=== PATIENT | female | born 1970 | race Hispanic/Latino ===

== ENCOUNTER 2018-04-20 12:43 | Inpatient (IN) | payer MEDICAID ==
[2018-04-20] MEDS ORDERED: Sodium Chloride 0.9% 1,000 ML IV ONE (13:16)
[2018-04-20] MEDS ORDERED: Sodium Chloride 0.9% 1,000 ML ONE (13:32)
[2018-04-20 14:02] LABS: BASO % 0.6 % (0.0-2.0); EOS % 0.7 % (0.0-4.0); HEMOGLOBIN 12.6 g/dL (11.0-16.0); LYMPH # 1.1 K/uL (1.0-4.3); MEAN CELL VOLUME 102.9 fL (81.0-99.0); MEAN CORPUSCULAR HEMOGLOBIN 35.7 pg (27.0-31.0); MEAN CORPUSCULAR HGB CONC 34.7 g/dL (33.0-37.0); MEAN PLATELET VOLUME 8.6 fL (7.2-11.7); MONO # 0.4 K/uL (0.0-0.8); MONO % 9.9 % (0.0-10.0); NEUT # 2.1 K/uL (1.8-7.0); NEUT % 57.8 % (50.0-75.0); NRBC % 0.4 % (0.0-2.0); RBC 3.52 Mil/uL (3.80-5.20); RED CELL DISTRIBUTION WIDTH 20.8 % (11.5-14.5); WHITE BLOOD COUNT 3.7 K/uL (4.8-10.8)
[2018-04-20 14:07] LABS: HCG,QUALITATIVE URINE NEGATIVE (NEGATIVE); SQUAMOUS EPITHIAL 2 /hpf (0-5); URINE BILIRUBIN 2+ (NEGATIVE); URINE BLOOD 1+ (NEGATIVE); URINE CLARITY Hazy (Clear); URINE COLOR Amber (YELLOW); URINE GLUCOSE (UA) NORMAL (Normal); URINE LEUKOCYTE ESTERASE NEG Leu/uL (Negative); URINE PROTEIN 2+ mg/dL (NEGATIVE)
[2018-04-20 14:15] LABS: ALB/GLOB RATIO 1.6 (1.0-2.1); ALBUMIN 4.4 g/dL (3.5-5.0); ALT/SGPT 162 U/L (9-52); AST/SGOT 655 U/L (14-36); BLOOD UREA NITROGEN 10 mg/dL (7-17); CALCIUM 8.9 mg/dl (8.6-10.4); GFR AFRICAN-AMERICAN > 60; GFR NON-AFRICAN AMERICAN > 60
[2018-04-20] MEDS ORDERED: Magnesium Sulfate 1 gm in D5W 1 GM/100 ML BAG IVPB ONE ×2 (14:42→14:51)
[2018-04-20] MEDS ORDERED: Potassium Chloride 20 mEq ER Tab PO STA (14:43)
[2018-04-20 14:49] LABS: BARBITURATES, UR NEGATIVE (NEGATIVE); OPIATES, UR NEGATIVE (NEGATIVE); PHENCYCLIDINE, UR NEGATIVE (NEGATIVE)
[2018-04-20] MEDS ORDERED: Potassium Chloride 20 mEq ER Tab PO ONE (14:51)
[2018-04-20 15:13] LABS: BENZODIAZEPINES, UR POSITIVE (NEGATIVE)
--- NOTE | 2018-04-20 15:28 | C.PDOC ---
History Of Present Illness Pt is here requesting detox from alcohol. Time Seen by Provider: 04/20/18 13:08 Chief Complaint (Nursing): Substance Abuse History Per: Patient Onset/Duration Of Symptoms: Days Current Symptoms Are (Timing): Still Present Modifying Factor(s): Alcohol Severity: Moderate Associated Symptoms: denies: Suicidal Thoughts, Suicidal Plan Additional History Per: Prior Records Past Medical History Reviewed: Historical Data, Nursing Documentation, Vital Signs Vital Signs: Last Vital Signs Temp 99 F 04/20/18 12:49 Pulse 132 H 04/20/18 12:49 Resp 20 04/20/18 12:49 BP 125/91 H 04/20/18 12:49 Pulse Ox 98 04/20/18 15:29 - Medical History PMH: Depression, Seizures (ETOH) Other PMH: Alcohol abuse Other Surgeries: Hysterectomy Family History: States: Unknown Family Hx - Social History Hx Tobacco Use: Yes Hx Alcohol Use: Yes Hx Substance Use: Yes - Immunization History Hx Tetanus Toxoid Vaccination: No Hx Influenza Vaccination: No Hx Pneumococcal Vaccination: No Review Of Systems Except As Marked, All Systems Reviewed And Found Negative. Constitutional: Negative for: Fever Cardiovascular: Negative for: Chest Pain Respiratory: Negative for: Shortness of Breath Gastrointestinal: Positive for: Nausea, Vomiting. Negative for: Abdominal Pain , Melena, Hematochezia, Hematemesis Musculoskeletal: Negative for: Neck Pain Skin: Positive for: Bruising Neurological: Negative for: Weakness, Numbness Physical Exam - Physical Exam Appears: Non-toxic, No Acute Distress Skin: Normal Color, Warm, Dry Head: Atraumatic, Normacephalic Eye(s): bilateral: PERRL, EOMI Lips: Other (Ecchymosis on lower lip) Teeth: No Avulsed Neck: Normal ROM, No Midline Cervical Tenderness, No Step Off Deformity, Supple Cardiovascular: Rhythm Regular (mild tachycardia) Respiratory: Normal Breath Sounds, No Accessory Muscle Use Gastrointestinal/Abdominal: Soft, No Tenderness Extremity: Normal ROM, No Deformity Neurological/Psych: Oriented x3, Normal Speech, Normal Cognition, Normal Motor, Normal Sensation, Other (Mildly tremulous) ED Course And Treatment - Laboratory Results Result Diagrams: 04/20/18 13:55 04/20/18 13:55 Interpretation Of Abnormal: Hypokalemia ECG: Interpreted By Me, Viewed By Me ECG Rhythm: Sinus Tachycardia, Nonspecific Changes Rate From EC O2 Sat by Pulse Oximetry: 98 Pulse Ox Interpretation: Normal Progress Note: Pt is medically stable for detox admission. Progress - Interventions Interventions:: Observation, Intravenous fluid - Medications Administered Oral: Other (KCl) Intravenous: H-2 [place], Other (Mg) - Data Reviewed Data Reviewed: Lab, Diagnostic imaging, EKG, Old records - Patient Status Patient status: Partially improved Disposition Counseled Patient/Family Regarding: Studies Performed, Diagnosis - Disposition Disposition: HOSPITALIZED Disposition Time: 15:37 Condition: STABLE - Clinical Impression Clinical Impression: Alcohol use disorder Decision To Admit - Pt Status Changed To: Hospital Disposition Of: Inpatient - Admit Certification Admit to Inpatient:: After my assessment, the patient will require hospitalization for at least two midnights. This is because of the severity of symptoms shown, intensity of services needed, and/or the medical risk in this patient being treated as an outpatient. - InPatient: Physician Admission Certification: I certify that this patient requires 2 or more midnights of care for the following reason:: Detox. - . Bed Request Type: Detox Admitting Physician: Jean Connors Patient Diagnosis: Alcohol use disorder
[2018-04-20] MEDS: Multiple Vitamins Tab PO SCH (17:20)
--- NOTE | 2018-04-20 22:51 | PCM.BM ---
<CarlosSummer - Last Filed: 04/20/18 22:50> Treatment Plan Problems - Problems identified on initial assessmt Potential for alcohol withdrawal Date Initiated: 04/20/18 Time Initiated: 22:50 Assessment reference: NA Status: Active Treatment assets and liabiliti Patient Assests: cooperative, negotiates basic needs, cognitively intact Patient Liabilities: substance abuse, medical problems, other (h/o multiple falls) - Milieu Protocol Maintain good personal hygiene: daily Encourage regular showers, daily Remind patient to perform daily oral care, daily Assist patient to perform ADL's Conduct patient checks and document Observation sheet: Q15 minutes Maintain personal safety: every shift Educate patient to report safety concerns to staff, every shift Monitor environment for contraband/sharps Medication safety: Monitor for expected outcome, potential side effects: every shift, Assess barriers to learning: every shift, Assess readiness for medication education: every shift <Jean Connors - Last Filed: 04/21/18 20:52> - Diagnosis (1) Alcohol use disorder Status: Acute Interventions: 04/21/18 20:52 * Assess 7x/week regarding severity of withdrawal * Educate regarding risks, benefits, side effects and alternatives of medications * Use Motivational Interviewing for abstinence * Use CBT for relapse prevention * Medication management for withdrawal symptoms * Encourage medication assisted treatment *
[2018-04-21 09:32] LABS: ALB/GLOB RATIO 1.4 (1.0-2.1); ALBUMIN 4.1 g/dL (3.5-5.0); ALT/SGPT 150 U/L (9-52); AST/SGOT 633 U/L (14-36); BLOOD UREA NITROGEN 14 mg/dL (7-17); CALCIUM 9.6 mg/dl (8.6-10.4); GFR AFRICAN-AMERICAN > 60; GFR NON-AFRICAN AMERICAN > 60
[2018-04-21] MEDS: Pantoprazole 20 mg EC Tab PO SCH (10:23)
[2018-04-21] MEDS: Multiple Vitamins Tab PO SCH (10:23)
--- NOTE | 2018-04-21 12:24 | PCM.PSYCH ---
Initial Psychiatric Evaluation - Initial Psychiatric Evaluation Type of Admission: Voluntary Legal Status: Capacity Chief Complaint (in patient's own words): "Very stressed out" History of Present Illness and Precipitating Events: The pt is seen, chart reviewed, case discussed She is a 47 y/o WF, , has 2 adult children, unemployed and lives with fiance She is here for alcohol detox; drinking more than a pint every day and having wdw sxs daily. She relapsed 3 weeks ago and has a history since her mid teens. She had problem drinking last 6 years. Had seizures in the past when she quit but no DTs. She was in detox/rehab twice. Uses MJ "rarely" Cigarette 1 ppd She also reports panic attacks, depression, excessive anxiety Not on meds or therapy Past psych hx: Used Cymbalta in the past, one admission to psych in 2013 with depression Family psych hx: Fa and brother had alcoholism Medical hx: Denied Current Medications: Active Medications Generic Name Dose Route Start Last Admin Trade Name Freq PRN Reason Stop Dose Admin Clonidine HCl 0.1 mg 04/20/18 16:16 Catapres PO Q4H PRN Symptoms of alcohol withdrawl Escitalopram Oxalate 5 mg 04/21/18 11:00 04/21/18 11:45 Lexapro PO 5 mg DAILY ROYAL Administration Folic Acid 1 mg 04/20/18 16:30 04/21/18 10:23 Folic Acid PO 1 mg DAILY ROYAL Administration Hydroxyzine HCl 25 mg 04/20/18 16:22 Atarax PO Q4H PRN Anxiety Ibuprofen 600 mg 04/20/18 22:25 04/20/18 22:31 Motrin Tab PO 600 mg Q8 PRN Administration Pain, moderate (4-7) Lorazepam 2 mg 04/20/18 16:30 04/21/18 10:24 Ativan PO 04/25/18 16:29 2 mg Q6H ROYAL Administration Taper Lorazepam 1 mg 04/20/18 16:16 Ativan PO Q4H PRN Symptoms of alcohol withdrawl Multivitamins 1 tab 04/20/18 16:30 04/21/18 10:23 Hexavitamin PO 1 tab DAILY ROYAL Administration Nicotine 1 patch 04/21/18 10:30 04/21/18 10:23 Nicoderm Cq TD 1 patch DAILY ROYAL Administration Ondansetron HCl 4 mg 04/20/18 16:22 Zofran Tab PO Q8H PRN nausea, vomiting Pantoprazole Sodium 20 mg 04/21/18 10:00 04/21/18 10:23 Protonix Ec Tab PO 20 mg DAILY ROYAL Administration Thiamine HCl 100 mg 04/20/18 16:30 04/21/18 10:23 Vitamin B1 Tab PO 100 mg DAILY ROYAL Administration Trazodone HCl 50 mg 04/20/18 16:16 Desyrel PO HS PRN Insomnia Past Psychiatric History - Past Psychiatric History Previous Treatment History: Inpatient Pertinent Medical Hx (Current Medical&Sleep Prob, Allergies): Allergies Allergy/AdvReac Type Severity Reaction Status Date / Time No Known Allergies Allergy Verified 04/20/18 12:54 DULoxetine [Cymbalta] 60 mg PO DAILY 04/20/18 chlordiazePOXIDE [Chlordiazepoxide HCl] 2 cap PO DAILY PRN 04/20/18 Review of Systems - Neurological Neurological: UNREMARKABLE - Psychiatric Psychiatric: Abnormal Sleep Pattern, Anhedonia, Anxiety, Depression, Difficulty Concentrating, Panic Attacks. absent: Hallucinations, Homicidal Ideation, Paranoia, Suicidal Ideation Mental Status Examination - Personal Presentation Personal Presentation: Looks older than stated age - Affect Affect: Constricted - Motor Activity Motor Activity: Calm - Reliability in Providing Information Reliability in Providing Information: Good - Speech Speech: Organized - Mood Mood: Depressed, Anxious - Formal Thought Process Formal Thought Process: No Impairment - Cognitive Functions Orientation: Person, Place, Situation, Time Sensorium: Alert Attention/Concentration: Attentive Estimate of Intelligence: Average Judgement: Intact, as evidence by: Insight regarding need for hospitalization Memory: Recent intact, as evidence by: Ability to recall events of the day, Remote intact, as evidenced by: Abilit to recall sig. life events - Risk Risk: Seizure, Withdrawal, Diminished functioning - Strength & Assets Inventory Strength & Assets Inventory: Cooperative - Limitations Limitations: Other DSM 5 DX - DSM 5 DSM 5 Diagnosis: Alcohol withdrawal Alcohol use d/o - severe Major depressive d/o -recurrent, moderate Panic d/o SONY Tobacco use d/o - severe - Recommended/Plan of Treatment Treatment Recommendations and Plan of Treatment: Ativan detox As needed medications Gabapentin for augmentation Lexapro for depression All risks, benefits and alternatives of medications, including no medications, discussed and the patient understood and agreed. Attend groups and activities Supportive therapy and psychoeducation HI for abstinence CBT for relapse prevention Encourage MAT Refer to rehab or IOP Attend self-help groups as well HI for smoking cessation and patch if needed 34 min Projected ELOS: 4-5 days Prognosis: good w treatment - Smoking Cessation Smoking Cessation Initiated: Yes
[2018-04-22] MEDS: Pantoprazole 20 mg EC Tab PO SCH (10:11)
[2018-04-22] MEDS: Multiple Vitamins Tab PO SCH (10:11)
--- NOTE | 2018-04-23 00:14 | PCM.PYCHPN ---
Psychiatric Progress Note - Psychiatric Progress Note Patient seen today, length of contact: 19 min Patient Chief Complaint: "I'm thinking about leaving" Problems Identified/Issues Discussed: The pt is seen, chart reviewed, case discussed with staff. The pt is compliant with medications and reports no side-effects. Symptoms are improving but needs more time to stabilize. She says she is anxious and craves cigarettes "too much" Ativan IM given as she was panicking. She responded well. Pt attends groups and activities. Support given, psycho-education provided. After care discussed. Medication Change: Yes (detox changes daily) Medical Record Reviewed: Yes Mental Status Examination - Cognitive Function Orientation: Person, Place, Situation, Time Memory: Intact Attention: WNL Concentration: WNL Association: WNL Fund of Knowledge: WNL - Mood Mood: Depressed, Anxious - Affect Affect: Constricted - Formal Thought Process Formal Thought Process: No Impairment - Suicidal Ideation Suicidal Ideation: No - Homicidal Ideation Homicidal Ideation: No Goal/Treatment Plan - Goal/Treatment Plan Need for Continued Stay: Discharge may exacerbated symptoms, Severe functional impairment Progress Toward Problem(s) and Goals/Treatment Plan: Ativan detox As needed medications Gabapentin for augmentation Lexapro for depression All risks, benefits and alternatives of medications, including no medications, discussed and the patient understood and agreed. Attend groups and activities Supportive therapy and psychoeducation AK for abstinence CBT for relapse prevention Encourage MAT Refer to rehab or IOP Attend self-help groups as well AK for smoking cessation and patch if needed Estimated Date of D/C: 04/24/18 - Smoking Cessation Smoking Cessation Initiated: Yes
[2018-04-23] MEDS: Pantoprazole 20 mg EC Tab PO SCH (10:02)
[2018-04-23] MEDS: Multiple Vitamins Tab PO SCH (10:02)
--- NOTE | 2018-04-23 12:54 | PCM.PYCHPN ---
Psychiatric Progress Note - Psychiatric Progress Note Patient seen today, length of contact: 19 min Patient Chief Complaint: "I'm better" Problems Identified/Issues Discussed: The pt is seen, chart reviewed, case discussed with staff. The pt is compliant with medications and reports no side-effects. Symptoms are improving but needs more time to stabilize. Labs done and LFTs improved a little Counselors are working on getting her a referral Detox is going on, tolerating well ID used, support and psychoed given Medication Change: Yes (detox changes daily) Medical Record Reviewed: Yes Mental Status Examination - Cognitive Function Orientation: Person, Place, Situation, Time Memory: Intact Attention: WNL Concentration: WNL Association: WNL Fund of Knowledge: WNL - Mood Mood: Depressed, Anxious - Affect Affect: Constricted - Formal Thought Process Formal Thought Process: No Impairment - Suicidal Ideation Suicidal Ideation: No - Homicidal Ideation Homicidal Ideation: No Goal/Treatment Plan - Goal/Treatment Plan Need for Continued Stay: Discharge may exacerbated symptoms, Severe functional impairment Progress Toward Problem(s) and Goals/Treatment Plan: Ativan detox As needed medications Gabapentin for augmentation Lexapro for depression All risks, benefits and alternatives of medications, including no medications, discussed and the patient understood and agreed. Attend groups and activities Supportive therapy and psychoeducation ID for abstinence CBT for relapse prevention Encourage MAT Refer to rehab or IOP Attend self-help groups as well ID for smoking cessation and patch if needed Estimated Date of D/C: 04/24/18
[2018-04-23 17:41] LABS: ALB/GLOB RATIO 1.5 (1.0-2.1); ALBUMIN 4.1 g/dL (3.5-5.0); ALT/SGPT 140 U/L (9-52); AST/SGOT 354 U/L (14-36); BLOOD UREA NITROGEN 15 mg/dL (7-17); CALCIUM 9.8 mg/dl (8.6-10.4); GFR AFRICAN-AMERICAN > 60; GFR NON-AFRICAN AMERICAN > 60
--- NOTE | 2018-04-24 08:47 | PCM.PYCHDC ---
Mental Status Examination - Mental Status Examination Orientation: Person, Place, Situation, Time Memory: Intact Mood: Anxious Affect: Constricted Speech: Appropriate Attention: WNL Concentration: WNL Association: WNL Fund of Knowledge: WNL Formal Thought Process: No Impairment Suicidal Ideation: No Current Homicidal Ideation?: No Discharge Summary - Discharge Note Reason for Hospitalization: Alcohol detox Laboratory Data: Abnormal Lab Results 04/23/18 04/23/18 17:10 17:10 Sodium 142 Potassium 4.2 Chloride 97 L Carbon Dioxide 30 Anion Gap 19 BUN 15 Creatinine 0.6 L Est GFR ( Amer) > 60 Est GFR (Non-Af Amer) > 60 Random Glucose 119 H Calcium 9.8 Magnesium 1.7 Total Bilirubin 2.1 H AST 354 H D ALT 140 H Alkaline Phosphatase 320 H D Total Protein 6.9 Albumin 4.1 Globulin 2.8 Albumin/Globulin Ratio 1.5 Consultations:: List each consultation separately and include: 1. Reason for request. 2. Findings. 3. Follow-up Summary of Hospital Course include:: 1. Description of specific treatment plan utilized for patients during their course of treatmen. 2. Summarize the time- course for resolution of acute symptoms and/or regressed behaviors. 3. Describe issues identified and worked on during hospitalization. 4. Describe medication utilized. 5. Describe medical problems identified and treated. 6. Reassessment of suicide risk Summary of Hospital Course: The pt is seen, chart reviewed, case discussed On admission: She is a 47 y/o WF, , has 2 adult children, unemployed and lives with ance She is here for alcohol detox; drinking more than a pint every day and having wdw sxs daily. She relapsed 3 weeks ago and has a history since her mid teens. She had problem drinking last 6 years. Had seizures in the past when she quit but no DTs. She was in detox/rehab twice. Uses MJ "rarely" Cigarette 1 ppd She also reports panic attacks, depression, excessive anxiety Not on meds or therapy Past psych hx: Used Cymbalta in the past, one admission to psych in 2013 with depression Family psych hx: Fa and brother had alcoholism Medical hx: Denied Hospital course: The pt was admitted and started on treatment with psychotherapy, support, psychoeducation and medications. MD and CBT used. The pt attended groups and activities, as well as milieu therapy. All the risks and benefits of medications are discussed and the patient understood and agreed. The pt improved with the treatments provided. She considered AMA at one point b/ c she was upset and craved smoking (refused Chantix, patch rx) Tpamax started bc she was not eligible for naltrexone due to very high LFTs After care discussed with the patient. She has an appoint at [facility]. and with a Zandra henriquez in [facility] - Final Diagnosis (DSM 5) Condition upon Discharge: STABLE DSM 5: Alcohol withdrawal Alcohol use d/o - severe Major depressive d/o -recurrent, moderate Panic d/o SONY Tobacco use d/o - severe Disposition: HOME/ ROUTINE Follow-up Treatment Plan: Continue below medications after discharge. Follow after care plan as discussed. Use relapse prevention skills Return to ER or call 911 if suicidal, homicidal or symptoms relapse. Stay away from stress, alcohol and drugs. See primary doctor regularly and get labs. Prescriptions/Medication Reconciliation: Escitalopram [Lexapro] 10 mg PO DAILY #30 tab Gabapentin [Neurontin] 300 mg PO TID #90 cap hydrOXYzine HCl [Atarax] 25 mg PO DAILY PRN #30 tab PRN Reason: Anxiety Pantoprazole [Protonix EC Tab] 20 mg PO DAILY #30 ect Topiramate [Topamax] 25 mg PO BID #60 tab traZODone [Desyrel] 100 mg PO HS PRN #30 tab PRN Reason: Insomnia - Smoking Cessation Smoking Cessation Medication prescribed: No - Antipsychotic Medications Pt discharged on 2 or more routine antipsychotic medications: No
[2018-04-24] MEDS: Multiple Vitamins Tab PO SCH (09:13)
[2018-04-24] MEDS: Pantoprazole 20 mg EC Tab PO SCH (09:14)
[2018-04-24 11:10] VITALS: BP 106/77; PULSE 92; RESP 20; TEMP 98.9; O2SAT 98
== END 2018-04-24 10:30 | disposition home or self-care (01) | DRG 750 ==
LOC: C.ER 12:43 → C.7D 15:38
PROVIDERS: ADMIT Psychiatry & Neurology Psychiatry; ATTEND Psychiatry & Neurology Psychiatry
PROC: HZ2ZZZZ Detoxification Services for Substance Abuse Treatment (ICD-10-PCS; principal; 2018-04-20)
PROC: HZ59ZZZ Individual Psychotherapy for Substance Abuse Treatment, Supportive (ICD-10-PCS; 2018-04-20)
PROC: GZ3ZZZZ Medication Management (ICD-10-PCS; 2018-04-20)
PROC: HZ46ZZZ Group Counseling for Substance Abuse Treatment, Psychoeducation (ICD-10-PCS; 2018-04-20)
PROC: HZ90ZZZ Pharmacotherapy for Substance Abuse Treatment, Nicotine Replacement (ICD-10-PCS; 2018-04-20)
PROC: GZHZZZZ Group Psychotherapy (ICD-10-PCS; 2018-04-20)
PROC: GZ56ZZZ Individual Psychotherapy, Supportive (ICD-10-PCS; 2018-04-20)
DX: F10.230 Alcohol dependence with withdrawal, uncomplicated (principal); F33.1 Major depressive disorder, recurrent, moderate; F41.0 Panic disorder [episodic paroxysmal anxiety]; F41.1 Generalized anxiety disorder; F17.210 Nicotine dependence, cigarettes, uncomplicated